=== PATIENT | female | born 1955 | race African-American/Black ===

== ENCOUNTER 2018-02-03 16:25 | Inpatient (IN) | payer OTHER ==
[~2018-02-03] VITALS: Ht 162.6 cm; Wt 124.2 kg
--- NOTE | ~2018-02-03 | EKG ---
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
--- NOTE | ~2018-02-03 | P ---
[facility] [place] [address] PROCEDURE REPORT Name: DANO ROQUE Room #: 226-P [facility] IN .R.#: [id number] Admission: 02/03/18 Attend Phys: Bi Key MD Discharge: Date of : 53 Report #: [id number] THIS REPORT FOR: //name// CC: Bi Key NO PCP BRIEF HISTORY: The patient is a 62-year-old woman who presented to [facility] with abdominal pain. She was found to have evidence of gallstones and evidence of pancreatitis. Also, there is a mass-like lesion in the region of the duodenum on CT. PREOPERATIVE DIAGNOSES: 1. Abdominal pain. 2. Abnormal CT abdomen. POSTOPERATIVE DIAGNOSES: 1. Gastric polyp. 2. Tkftdnbz-hx-tennho diffuse gastritis. 3. Small hiatus hernia. MEDICATIONS: Deep sedation with propofol for anesthesia. SPECIMENS: 1. Biopsies of gastritis. 2. Gastric polyp. ESTIMATED BLOOD LOSS: 3 mL. PROCEDURE: EGD with snare polypectomy and biopsy. FINDINGS: Prior to propofol sedation, procedure of upper endoscopy was discussed with the patient as well as potential risks and its complications. She indicates she understands and desires to proceed. DESCRIPTION OF PROCEDURE: With the patient in left lateral decubitus position, the Olympus video endoscope was inserted in the cervical esophagus under direct vision without difficulty. Examination of this organ through its entire length reveled normal esophageal mucosa down the squamocolumnar junction. Squamocolumnar junction was inspected and noted to be unremarkable. No ulcers or erosions were seen. Intermittently, a small sliding hiatus hernia in the range of about 2 cm was noted. Mucosa in the hernia was unremarkable. Scope was advanced in the stomach, was examined on end view as well as retroflexed views. There was a diffuse gastritis with erythema in the antrum, but there were also mild nodular changes throughout the entire stomach. Multiple biopsies were obtained. Upon retroflexion, no mass lesions were seen. In addition, in the body of the stomach along the greater curvature aspect, was a linear polyp. It was probably 3-4 mm in width and about 15 mm in length. It was removed by [facility] [address] [place] [address] PROCEDURE REPORT Name: DANO ROQUE Room #: 226-P ADM IN .R.#: [id number] Admission: 02/03/18 Attend Phys: Bi Key MD Discharge: Date of : 53 Report #: [id number] cold snare polypectomy and recovered. There was good hemostasis. The pylorus, duodenal bulb, and postbulbar duodenal sweep down to the fourth portion of duodenum was generally unremarkable. No mass lesions were seen, no ulcers were seen, no inflammatory changes were seen. There was some very slight fullness of the duodenal folds, which may represent duodenal edema, but it was only mild and there was no erythema or inflammatory changes. This may be nonspecific or related to her pancreatitis. Also, there is no evidence of obstruction. At that point, the scope was slowly withdrawn and careful circumferential views confirmed the above findings. The patient tolerated the procedure well. DISPOSITION: The patient with abdominal pain, she clearly has pancreatitis and was found to have gallstones in the gallbladder, that may be the source of her pancreatitis. The lesion around the duodenum may be a lymph node. There is no luminal evidence of a neoplastic process in the duodenum. We will continue to treat her for pancreatitis. Follow up on biopsy of the stomach as well as a polyp. As far as the duodenal lesion, options would include repeating a CAT scan or even an endoscopic ultrasound after pancreatitis has resolved. She will likely require cholecystectomy. By: [id number] Winston Benz MD /john
--- NOTE | ~2018-02-03 | PATH ---
[facility] [address] [place] [address] PATHOLOGY RPT PROCEDURE Name: MONALISA ROQUE Room #: 226-P [facility] IN M.R.#: [id number] Admission: 02/03/18 Date of : 53 Discharge: 02/06/18 Report #: [id number] Path Case #: [id number] [facility] Accession Number: [id number] . 01 Material submitted: . PART A: BX OF GASTRIC, GASTRITIS PART B: POLYP OF GASTRIC AREA . 01 Clinical history: . Pre-OP DX: Abdominal pain, epigastric pain Post-OP DX: Gastritis . 02 Diagnosis: A. Gastric biopsy "biopsy gastric mucosa": - Chronic active gastritis with focal acute cryptitis and with focal intestinal metaplasia. - The immunoperoxidase stain for Helicobacter pylori reveals rare bacteria positive; however, predominantly negative. . B. Gastric biopsy "polyp of gastric area": - Inflamed hyperplastic polyp with focal adenomatous change and focal intestinal metaplasia without any evidence of high-grade dysplasia or malignancy. [facility] [email or web address]/07/2018 . 02 Comment: Part B of this case was also reviewed by Dr. Charo Lafleur. (SHA:pit 02/07/2018) . 02 Electronically signed: . Devan Galindo MD, Pathologist NPI- [id number] . 01 Gross description: . A. Received in formalin labeled "Monalisa Roque, BX of gastric/gastritis," are multiple segments of morales soft tissue measuring 1.9 x 0.4 x 0.2 cm in aggregate dimensions. The specimen is filtered and entirely submitted in cassette A1. . B. Received in formalin labeled "Monalisa Roque, polyp of gastric area," is a 1.1 x 0.6 x 0.4 cm polypoid piece of morales soft tissue with a stalk measuring 0.9 cm in length and 0.4 cm in diameter. The margin of the stalk is inked. The specimen is sectioned perpendicular to the margin and entirely submitted in cassette A1 and A2. (TSD; 02/04/2018) TOB/TOB . 02 [place] [address] PATHOLOGY RPT PROCEDURE Name: MONALISA ROQUE Room #: 226-P [facility] IN M.R.#: [id number] Admission: 02/03/18 Date of : 53 Discharge: 02/06/18 Report #: [id number] Path Case #: [id number] Pathologist provided ICD-10: K29.50, B96.81, K31.7 . 02 CPT . 556675, 223891, [id number] Specimen Comment: A courtesy copy of this report has been sent to Specimen Comment: [phone], . Specimen Comment: Report sent to / DR DELCID Performed at: [address], [place] [id number] MD Chris Muñoz MD Phone: [phone] Performed at: [address] [id number] MD Doris Santos MD Phone: [phone]
[2018-02-03 16:26] VITALS: BP 239/99
[2018-02-03] MEDS ORDERED: BISOPROLOL FUMAR5 MG PO (16:44)
[2018-02-03] MEDS ORDERED: LISINOPRIL20 MG PO (16:45)
[2018-02-03] MEDS ORDERED: SPIRONOLACTONE25 M1 PO (16:46)
[2018-02-03] MEDS ORDERED: METFORMIN HCL500 MG PO (16:46)
[2018-02-03 17:23] LABS: ABSOLUTE NEUTROPHILS 5.9 thou/uL (1.4-8.2); EOSINOPHILS 2.3 % (0.0-3.0); HEMATOCRIT 37.2 % (37.0-47.0); HEMOGLOBIN 12.5 gm/dL (12.0-15.0); LYMPHOCYTES 23.3 % (24.0-44.0); MCH 28.5 pg (26.0-34.0); MCHC 33.7 g/dL (28.0-37.0); MCV 84.5 fL (80.0-100.0); MONOCYTES 7.2 % (1.0-8.0); PLATELET COUNT 222 thou/uL (150-400); POLYS 66.2 % (36.0-66.0); WBC 8.9 thou/uL (4.0-11.0)
[2018-02-03 17:31] LABS: ANION GAP 6 mmol/L (7-16); BUN 17 mg/dL (7-18); CALCIUM 9.5 mg/dL (8.5-10.1); CHLORIDE 98 mmol/L (98-107); CO2 30 mmol/L (21-32); CREATININE 0.8 mg/dL (0.6-1.0); GLUCOSE 196 mg/dL (74-106); POTASSIUM 4.2 mmol/L (3.5-5.1); SODIUM 134 mmol/L (136-145)
[2018-02-03 17:39] LABS: ALBUMIN 3.3 g/dL (3.4-5.0); LIPASE 3355 U/L (73-393); SGOT 18 U/L (15-37); SGPT 20 U/L (30-65); TOTAL BILIRUBIN 0.8 mg/dL (<0.1-1.0); TOTAL PROTEIN 7.8 g/dL (6.4-8.2); TROPONIN-I <0.06 ng/mL (<0.06)
[2018-02-03] MEDS ORDERED: CHLORTHALIDONE25 MG PO (18:43)
[2018-02-03 18:44] LABS: URINE BILIRUBIN NEGATIVE (Negative); URINE BLOOD NEGATIVE (Negative); URINE CLARITY CLEAR; URINE COLOR YELLOW; URINE GLUCOSE-RANDOM* NEGATIVE (Negative); URINE KETONES NEGATIVE (Negative); URINE NITRITE-REFLEX NEGATIVE (Negative); URINE PROTEIN (DIPSTICK) NEGATIVE (Negative); URINE UROBILINOGEN 0.2 E.U./dl (0.2-1.0)
[2018-02-03] MEDS ORDERED: VITAMIN D2000 UNIT PO (18:44)
[2018-02-03] MEDS ORDERED: LANTUS SOL100 UNIT/1 SUBQ (18:45)
[2018-02-03] MEDS ORDERED: SYNTHROID300 MCG PO (18:49)
[2018-02-03] MEDS ORDERED: PIOGLITAZONE15 MG (18:49)
[2018-02-03 19:01] LABS: URINE LEUKOCYTES-REFLEX TRACE (Negative)
[2018-02-03 19:58] VITALS: BP 212/83
[2018-02-03 20:18] VITALS: BP 212/83
[2018-02-03 21:00] VITALS: BP 179/80
[2018-02-04 04:30] VITALS: BP 174/67
[2018-02-04 06:05] LABS: HEMATOCRIT 36.5 % (37.0-47.0); HEMOGLOBIN 11.8 gm/dL (12.0-15.0); MCH 27.6 pg (26.0-34.0); MCHC 32.4 g/dL (28.0-37.0); MCV 85.3 fL (80.0-100.0); RBC 4.28 mil/uL (4.20-5.00); RDW 13.7 % (10.5-14.5); WBC 7.6 thou/uL (4.0-11.0)
[2018-02-04 06:16] LABS: CALCIUM 8.8 mg/dL (8.5-10.1); CREATININE 0.9 mg/dL (0.6-1.0); POTASSIUM 3.4 mmol/L (3.5-5.1)
[2018-02-04 06:27] LABS: CHOLESTEROL 140 mg/dL (<200); HDL CHOLESTEROL 43 mg/dL (>40); LDL CHOLESTEROL 74 mg/dL (<100); TC:HDL 3.3 Ratio (Not establshd); TRIGLYCERIDE 118 mg/dL (<150); VLDL 24 mg/dL (<40)
[2018-02-04 07:12] VITALS: BP 157/72
[2018-02-04 15:43] VITALS: BP 164/83
[2018-02-04 19:34] LABS: CALCIUM 8.5 mg/dL (8.5-10.1); CREATININE 0.9 mg/dL (0.6-1.0); MAGNESIUM 1.7 mg/dL (1.8-2.4); POTASSIUM 3.8 mmol/L (3.5-5.1)
[2018-02-04 19:49] VITALS: BP 158/53
[2018-02-04 20:57] VITALS: BP 173/69
[2018-02-04 23:07] LABS: GLYCOHEMOGLOBIN (HGB A1C) 10.3 % (4.8-5.6)
[2018-02-05 01:51] VITALS: BP 181/89
[2018-02-05 03:41] VITALS: BP 164/79
[2018-02-05 07:41] VITALS: BP 172/77
[2018-02-05 09:26] LABS: ABSOLUTE NEUTROPHILS 5.5 thou/uL (1.4-8.2); BASOPHILS 0.8 % (0.0-2.0); EOSINOPHILS 1.4 % (0.0-3.0); HEMATOCRIT 36.2 % (37.0-47.0); HEMOGLOBIN 11.7 gm/dL (12.0-15.0); LYMPHOCYTES 25.3 % (24.0-44.0); MCHC 32.5 g/dL (28.0-37.0); MCV 86.2 fL (80.0-100.0); MONOCYTES 5.7 % (1.0-8.0); PLATELET COUNT 222 thou/uL (150-400); POLYS 66.8 % (36.0-66.0); RBC 4.19 mil/uL (4.20-5.00); RDW 13.9 % (10.5-14.5); WBC 8.3 thou/uL (4.0-11.0)
[2018-02-05 09:41] LABS: ALBUMIN 3.2 g/dL (3.4-5.0); CALCIUM 9.1 mg/dL (8.5-10.1); TOTAL BILIRUBIN 1.2 mg/dL (<0.1-1.0); TOTAL PROTEIN 7.6 g/dL (6.4-8.2)
[2018-02-05 10:14] LABS: LARGE PLATELETS FEW; PLATELET ESTIMATE NORMAL
[2018-02-05 21:12] VITALS: BP 195/96
[2018-02-05 22:30] VITALS: BP 184/78
[2018-02-06 02:28] VITALS: BP 108/90
[2018-02-06 03:16] LABS: ABSOLUTE NEUTROPHILS 4.5 thou/uL (1.4-8.2); EOSINOPHILS 2.2 % (0.0-3.0); HEMATOCRIT 36.3 % (37.0-47.0); HEMOGLOBIN 11.7 gm/dL (12.0-15.0); LYMPHOCYTES 24.7 % (24.0-44.0); MCH 27.5 pg (26.0-34.0); MCHC 32.2 g/dL (28.0-37.0); MCV 85.7 fL (80.0-100.0); MONOCYTES 7.7 % (1.0-8.0); PLATELET COUNT 195 thou/uL (150-400); POLYS 64.4 % (36.0-66.0); RBC 4.23 mil/uL (4.20-5.00); RDW 13.7 % (10.5-14.5)
[2018-02-06 03:33] LABS: ALBUMIN 3.1 g/dL (3.4-5.0); CALCIUM 9.1 mg/dL (8.5-10.1); CREATININE 0.8 mg/dL (0.6-1.0); POTASSIUM 3.8 mmol/L (3.5-5.1); TOTAL BILIRUBIN 1.3 mg/dL (<0.1-1.0); TOTAL PROTEIN 7.3 g/dL (6.4-8.2)
[2018-02-06 07:45] VITALS: BP 191/98
[2018-02-06] MEDS ORDERED: PROTONIX40 M1 PO (11:42)
[2018-02-06 14:28] VITALS: BP 164/81
[2018-02-06 15:31] VITALS: BP 164/81
== END 2018-02-06 16:00 | disposition home or self-care (01) | DRG 444 ==
LOC: ER 16:25 → 4E 18:56 → EROBS 18:56 → 4E 20:47 → SICU 02-04 20:45
PROVIDERS: Hospitalist; Nurse Practitioner Family; Physician Assistant; Specialist; Surgery
PROC: 0DB68ZX Excision of Stomach, Via Natural or Artificial Opening Endoscopic, Diagnostic (ICD-10-PCS; principal; 2018-02-04)
PROC: 0DB68ZZ Excision of Stomach, Via Natural or Artificial Opening Endoscopic (ICD-10-PCS; 2018-02-04)
DX: K80.20 Calculus of gallbladder without cholecystitis without obstruction (principal); K85.90 Acute pancreatitis without necrosis or infection, unspecified; I10 Essential (primary) hypertension; K31.7 Polyp of stomach and duodenum; K29.70 Gastritis, unspecified, without bleeding; K44.9 Diaphragmatic hernia without obstruction or gangrene; E11.9 Type 2 diabetes mellitus without complications; E78.5 Hyperlipidemia, unspecified; E03.9 Hypothyroidism, unspecified; I16.0 Hypertensive urgency; D18.09 Hemangioma of other sites; K21.9 Gastro-esophageal reflux disease without esophagitis; K31.9 Disease of stomach and duodenum, unspecified; R59.9 Enlarged lymph nodes, unspecified; Z80.0 Family history of malignant neoplasm of digestive organs; Z91.041 Radiographic dye allergy status; Z80.3 Family history of malignant neoplasm of breast; Z84.1 Family history of disorders of kidney and ureter; Z83.3 Family history of diabetes mellitus; Z79.899 Other long term (current) drug therapy
CPT/HCPCS: 10783; 15000; 62110; 62900; 70005

== ENCOUNTER 2021-03-04 18:56 | Emergency (ER) | payer OTHER ==
[~2021-03-04] VITALS: Ht 162.6 cm; Wt 117.9 kg
[~2021-03-04 18:56] MED LIST: BISOPROLOL FUMAR5 MG PO; CHLORTHALIDONE25 MG PO; LANTUS SOL100 UNIT/1 SUBQ; LISINOPRIL20 MG PO; METFORMIN HCL500 MG PO; PIOGLITAZONE15 MG; PROTONIX40 M1 PO; SPIRONOLACTONE25 M1 PO; SYNTHROID300 MCG PO; VITAMIN D2000 UNIT PO
[2021-03-04 21:38] VITALS: BP 181/78
== END 2021-03-04 21:39 | disposition home or self-care (01) ==
LOC: ER 18:56
DX: S92.535A Nondisplaced fracture of distal phalanx of left lesser toe(s), initial encounter for closed fracture (principal); I10 Essential (primary) hypertension; E11.9 Type 2 diabetes mellitus without complications; E78.5 Hyperlipidemia, unspecified; E03.9 Hypothyroidism, unspecified; Z40.09 Encounter for prophylactic removal of other organ; Z79.4 Long term (current) use of insulin; Z79.891 Long term (current) use of opiate analgesic; Z79.899 Other long term (current) drug therapy; Z91.041 Radiographic dye allergy status; W22.8XXA Striking against or struck by other objects, initial encounter; Y93.89 Activity, other specified; Y92.89 Other specified places as the place of occurrence of the external cause; Y99.8 Other external cause status